=== PATIENT | female | born 1985 ===

== ENCOUNTER 2020-04-20 14:12 | Emergency (ER) | payer MEDICAID, SELFPAY | END 2020-04-20 17:57 | disposition admitted as inpatient to this hospital (09) | LOC: ER 04-23 00:37 | PROVIDERS: Emergency Provider Emergency Medicine; PCP Nurse Practitioner Family | DX: R45.850 Homicidal ideations (principal) | CPT/HCPCS: 12345; 36415; 80053; 80156; 80164; 80178; 80185; 80307; 84443; 85025; 93005; 96372; 99284; 99285; J1200; J1630; J2060 ==

== ENCOUNTER 2020-04-20 14:12 | Inpatient (IN) | payer MEDICAID, SELFPAY ==
--- NOTE | 2020-04-20 14:17 | ECG_ITS ---
[facility] ED Test Date: 2020-04-20 Pat Name: Jessica Wills Department: Room: 122 Gender: Female Crack Off Person: : 1985 Requested By: Francoise Loo Order Number: [id number] Jase MD: Bria Radford M.D. Measurements Intervals [place] Rate: 54 P: 38 IN: 142 QRS: 42 QRSD: 92 T: 42 QT: 471 QTc: 449 Interpretive Statements SINUS BRADYCARDIA NONSPECIFIC T-WAVE ABNORMALITY No previous ECG available for comparison Electronically Signed On 04-20-2020 18:23:49 CDT by Bria Radford M.D. [id number]
[2020-04-20 14:19] VITALS: BP 150/105; PULSE 97; RESP 17; TEMP 36.4; O2SAT 98; BMI 23.3
[2020-04-20] MEDS: LORazepam 2 mg/mL INJ 1 mL IM (14:40)
[2020-04-20] MEDS: haloperidol inj 5 mg/mL INJ 1 mL IM (14:40)
[2020-04-20] MEDS: diphenhydrAMINE 50 mg/mL SDV 1mL IM (14:40)
--- NOTE | 2020-04-20 14:40 | PC.NURSE ---
During assessment of patient this RN and JORGE LUIS Mckeon attempted to change the patient out. Patient refused to change out. After getting the patient to start changing she refused to remove her underwear and JORGE LUIS Mckeon saw the patient shove something in her underwear. Patient refused to take her underwear off. Staff then placed the patient in a manual hold. service delivery supervisor and security at bedside when manual hold performed. IM medications given to patient at this time. Patients bottoms then removed at this time. 2 lighters and a small bag of marijuana. DUKE Olvera placed the small bag of marijuana in a biohazard bag and given to the [facility] deputy. Patient placed in paper scrubs and resting on bed.
--- NOTE | 2020-04-20 14:45 | W.ED.PSYCH ---
HPI - Psych General: Chief Complaint: Psychiatric Symptoms Stated Complaint: 96 HOUR HOLD Time Seen by Provider: 04/20/20 14:17 Source: patient and police Mode of arrival: ambulatory Limitations: other (Patient is non-cooperative) History of Present Illness: HPI Narrative: Jessica is a 34-year-old female who is brought in for a 96-hour hold signed by the virtualization engineer. It appears the patient may have be hallucinating and have suicidal and homicidal ideation. Please see the affidavits for specifics. Patient is very noncompliant and withdrawn. She understands she is here for medical clearance and she will be admitted to the MPU. Review of Systems General: Reports: Other (Patient is non-cooperative) [facility] ED PFSH: Social History Smoking and tobacco status: never smoked Physical Exam Const: COMMON NORMALS: no acute distress, no limitations, healthy appearing and well nourished GENERAL APPEARANCE: cooperative and well developed HENMT: COMMON NORMALS: normocephalic, atraumatic, external ears normal, EAC's normal and Normal external nose present HEAD & SCALP: normal to inspection, normocephalic and atraumatic FACE & SINUS: normal facial exam and face symmetric NOSE: Normal external nose present and Normal nares present EXTERNAL EAR: Yes external ears normal EXTERNAL AUDITORY CANAL: EAC's normal MOUTH: Normal oral and palatal mucosa present, lip normal and tongue normal Eye: COMMON NORMALS: Equal, round and reactive pupils present and conjunctivae normal GENERAL EYE: appearance normal, both eyes and all related structures ALIGNMENT: Yes alignment normal PERIORBITAL: periorbital findings normal EYELID: eyelids normal CONJUNCTIVA: Yes conjunctivae normal SCLERA: sclerae normal PUPIL: Yes Equal, round and reactive pupils present Neck/C-Spine: COMMON NORMALS: full ROM, no lymphadenopathy, supple, no meningeal signs and no JVD GENERAL: Yes normal visual inspection and Yes trachea midline Chest: COMMONS NORMALS: normal inspection of the chest and normal palpation of entire chest wall Resp: COMMON NORMALS: normal respiratory effort, No retractions and No use of accessory muscles EFFORT & INSPECTION: Yes able to speak in complete sentences and Yes symmetric chest movement AUSCULTATION: no crackles, no rales, no rhonchi and no wheezes Cardio: COMMON NORMALS: no JVD, regular rate, regular rhythm, S1 normal heart sound present and S2 normal heart sound present RATE: regular rate RHYTHM: regular rhythm HEART SOUNDS: S1 normal heart sound present, S2 normal heart sound present, no click, no gallops, no murmurs, no rubs and abnormal split S2 GI: COMMON NORMALS: Soft to palpation and No hepatosplenomegaly present PALPATION: Yes Soft to palpation, No Tenderness to palpation present (GI), No Guarding due to palpation present (GI), No Rigid due to palpation, Yes No hepatosplenomegaly present, No Hernia present, No Palpable mass present and No Pulsatile mass present : COMMON NORMALS: Yes no CVA tenderness BLADDER/KIDNEY EXAM: Yes no CVA tenderness EXTERNAL FEMALE EXAM: No Hernia present Back/Pelvis: COMMON NORMALS: no CVA tenderness, thoracic and lumbar spine normal to inspection, no thoracic nor lumbar tenderness and thoraco-lumbar ROM normal Extremity: COMMON NORMALS: normal to inspection, full ROM, capillary refill normal, no joint enlargement, no clubbing, cyanosis or edema and no calf tenderness Neuro: COMMON NORMALS: CN's II-XII intact bilaterally, moves all extremities, no focal motor deficits and no sensory deficits noted MENINGEAL SIGNS: Yes no meningeal signs SPEECH: speech normal Psych: ATTITUDE: Yes uncooperative ACTIVITY/MOTOR BEHAVIOR: Yes Avoids eye contact (attititude/behavior) SPEECH: Yes minimal MOOD & AFFECT: Yes apathetic Skin: COMMON NORMALS: no rashes or lesions noted, turgor normal, no jaundice, no petechiae and no mottling GENERAL SKIN EXAM: no rashes or lesions noted and turgor normal MDM - Psych MDM Narrative: Medical decision making narrative: The case was reviewed with Dr. Oswald and he understands the patient is under 96-hour hold. He agrees to admit the patient for further evaluation and care. Lab Data: Attestation: I reviewed the patient's lab results. Labs: Lab Results 04/20/20 04/20/20 04/20/20 Range/Units 15:10 15:10 15:10 WBC 10.5 H (4.0-10.0) 10^3/ uL RBC 4.69 (4.1-5.3) 10^6/u L Hgb 12.9 (11.5-15.3) g/dL Hct 40.4 (37.0-47.0) % MCV 86.1 (81-99) fL MCH 27.5 L (28.0-34.0) pg MCHC 31.9 (30.0-36.0) g/dL RDW 13.4 (12.1-15.1) % Plt Count 267 (130-400) 10^3/c mm MPV 11.9 H (7.4-10.4) fL Neut % (Auto) 66.7 % Lymph % (Auto) 22.5 % [place] % (Auto) 9.0 % Eos % (Auto) 1.0 % Baso % (Auto) 0.4 % Neut # (Auto) 7.0 (1.8-7.7) 10^3/u L Lymph # (Auto) 2.4 (0.8-4.8) 10^3/u L [place] # (Auto) 0.9 (0.2-0.9) 10^3/u L Eos # (Auto) 0.1 (0.0-0.8) 10^3/u L Baso # (Auto) 0.0 (0.0-0.1) 10^3/u L Nucleated RBC % (a uto) 0 % Nucleated RBCs # 0.0 /100WBC Sodium 143 (136-145) mmol/L Potassium 3.2 L (3.5-5.1) mmol/L Chloride 105 (98-107) mmol/L Carbon Dioxide 26 (22-29) mmol/L Anion Gap 15.2 (5-19) BUN 12 (6-20) mg/dL Creatinine 0.7 (0.5-0.9) mg/dL GFR Calculation 96.4 (90-130) mL/min Glucose 103 (65-115) mg/dL Calculated Osmolal ity 292 (285-295) mOsm/k g Calcium 9.3 (8.5-10.5) mg/dL Total Bilirubin 0.2 (0.15-1.2) mg/dL AST 15 (0-32) U/L ALT 10 (0-33) U/L Alkaline Phosphata se 66 (35-105) IU/L Total Protein 6.5 L (6.6-8.7) g/dL Albumin 3.9 (3.5-5.2) g/dL Globulin 2.6 (1.3-4.6) g/dL TSH 0.96 (0.27-4.20) uIU/ mL Salicylates < 0.3 L (3-10) mg/dL Acetaminophen < 5.0 L (10-30) ug/mL Phenytoin 0.8 L (10-20) ug/mL Valproic Acid 2.8 L (50-100) ug/mL Carbamazepine 2.0 L (4.0-12.0) ug/mL [place] 0.1 L (0.6-1.2) mmol/L Ethyl Alcohol < 10 (0-10) mg/dL EKG Data^: EKG 1: Attestation: I personally reviewed and interpreted this EKG as follows: EKG interpretation date: 04/20/20 Interpretation: Normal sinus rhythm at 54 beats a minute, nonspecific ST-T wave changes. No blocks, normal intervals. Normal QTC. Discharge Plan Discharge Patient Disposition: Admitted As Inpatient Admit Provider: Sammy Oswald Clinical Impression: Homicidal ideations Condition: Stable Interventions: ED Discharge Assessment Last Done: 04/20/20 17:45 ED Charges Last Done: 04/20/20 17:45 Discharge Date/Time: 04/20/20 17:57 Coding Level of Care Code ED Industrial Green Systems Designer for Shana Junior
[2020-04-20 15:20] LABS: Basophils % 0.4 %; Eosinophils # 0.1 10^3/uL (0.0-0.8); Hematocrit 40.4 % (37.0-47.0); Hemoglobin 12.9 g/dL (11.5-15.3); Lymphocytes # 2.4 10^3/uL (0.8-4.8); Lymphocytes % 22.5 %; Mean Corpuscular HGB Conc 31.9 g/dL (30.0-36.0); Mean Corpuscular Hemoglobin 27.5 pg (28.0-34.0); Mean Corpuscular Volume 86.1 fL (81-99); Mean Platelet Volume 11.9 fL (7.4-10.4); Monocytes # 0.9 10^3/uL (0.2-0.9); Neutrophils % 66.7 %; Nucleated Red Blood Cells % 0 %; Platelet Count 267 10^3/cmm (130-400); Red Blood Count 4.69 10^6/uL (4.1-5.3); Red Cell Distribution Width 13.4 % (12.1-15.1); White Blood Count 10.5 10^3/uL (4.0-10.0)
[2020-04-20 15:32] LABS: Lithium 0.1 mmol/L (0.6-1.2)
[2020-04-20 15:40] LABS: Alanine Aminotransferase 10 U/L (0-33); Albumin Level 3.9 g/dL (3.5-5.2); Alkaline Phosphatase 66 IU/L (35-105); Anion Gap 15.2 (5-19); Aspartate Amino Transferase 15 U/L (0-32); Blood Urea Nitrogen 12 mg/dL (6-20); Calcium 9.3 mg/dL (8.5-10.5); Carbon Dioxide 26 mmol/L (22-29); Chloride 105 mmol/L (98-107); Globulin 2.6 g/dL (1.3-4.6); Glomerular Filtration Rate 96.4 mL/min (90-130); Glucose 103 mg/dL (65-115); Osmolality Calculated 292 mOsm/kg (285-295); Phenytoin Dilantin 0.8 ug/mL (10-20); Potassium 3.2 mmol/L (3.5-5.1); Sodium 143 mmol/L (136-145); Thyroid Stimulating Hormone 0.96 uIU/mL (0.27-4.20); Total Bilirubin 0.2 mg/dL (0.15-1.2); Total Protein 6.5 g/dL (6.6-8.7); Valproic Acid Level 2.8 ug/mL (50-100)
[2020-04-20 15:53] LABS: Acetaminophen < 5.0 ug/mL (10-30); Alcohol Level < 10 mg/dL (0-10); Salicylate < 0.3 mg/dL (3-10)
[2020-04-20 17:45] VITALS: BP 125/83; PULSE 64; RESP 16; O2SAT 98
[2020-04-20 18:34] VITALS: BP 108/69; PULSE 68; RESP 16; TEMP 36.7; O2SAT 98
[2020-04-20 18:58] VITALS: BP 107/75; PULSE 60; RESP 18; TEMP 37.1; O2SAT 98
[2020-04-20 21:39] VITALS: BP 107/75; PULSE 60; TEMP 37.1; O2SAT 98
--- NOTE | 2020-04-20 22:59 | PC.NURSE ---
Pt offered PRN sleeping med, pt refused.
[2020-04-21 06:00] VITALS: BP 101/60; PULSE 60; RESP 17; TEMP 36.6; O2SAT 97
--- NOTE | 2020-04-21 09:18 | PM.NHP ---
Providers/Chief Complaint Admitting Physician: Sammy Oswald MD Primary Care Provider: SEVERO Garvey Chief Complaint: 96 HOUR HOLD HPI NPU History of Present Illness Jessica Wills is a 34 year old female who presented to the emergency room with psychosis, extreme agitation requiring a code 10 to get her under control so that she could be administered 2. Reportedly contraband was found on her person including a real estate account executive and other paraphernalia. She was on a 96-hour hold and was noted to be hallucinating and speaking about suicidal and homicidal issues. She was admitted to the neuropsychiatric unit for definitive treatment of those issues. This morning she is less agitated, continues to appear to be attending to internal stimuli and laughing inappropriately and essentially denying any issues related to drugs or otherwise but at this point she is so confused that she is unable to have a coherent conversation. She is unable to provide any substantive history or facts regarding what led up to her situation, where she lives where she is from her anything of that nature to this movie writer. We discussed the fact that we would be working with her to try to help with her symptoms but she could only articulate questions about going home. She was unable to provide any historical data of any relevance. We will continue to try to gather more information as the days pass. Meds NPU Home Medications Medication Instructions Recorded Confirmed Last Taken Type No Known Home Medications 04/20/20 04/20/20 Unknown History Allergies Allergy/AdvReac Type Severity Reaction Status Date / Time No Known Allergies Allergy Unverified 04/20/20 14:53 PFS NPU PFSH: Social History Smoking and tobacco status: never smoked Mental Status Exam MSE Comments: This is a well-nourished well-developed white female with limited dress, grooming or eye contact. She has multiple scabs on her arms and face that look consistent with picking related likely to methamphetamine use, she has mild psychomotor agitation, uncooperative with exam in no acute distress. Speech was limited in decreased rate and volume. Mood not answered affect guarded. Thought process linear at best, thought content: Patient did not demonstrate outwardly directed or self directed aggression today, but does appear to be attending to internal stimuli and smiling inappropriately. Attention and concentration are impaired and memory is unreliable but none. She is alert and oriented to self Insight and judgment are impaired. Vitals/I&O/Wt Last Vital Signs Temp 97.9 F 04/21/20 06:00 Pulse 60 04/21/20 06:00 Resp 17 04/21/20 06:00 BP 101/60 04/21/20 06:00 Pulse Ox 97 04/21/20 06:00 Weight last 48 hrs Weight 63.503 kg Data NPU : 04/20/20 15:10 04/20/20 15:10 A&P Assessment and plan (1) Methamphetamine dependence: Status: Acute (2) Psychosis: Status: Acute (3) Homicidal ideations: Status: Acute Additional A&P Information This is a 34-year-old white female who presents fairly unknown to the neuropsychiatric unit with active psychosis positive methamphetamine drug screen and aggression in the emergency room currently calm her but still psychotic and not really engaging in assisting with information gathering. 1. Continue current medication. 2. We will continue to offer her Abilify or some other antipsychotic to assist in her likely methamphetamine induced psychosis. 3. Continue to 15-minute checks for safety. 4. We will work with social work to locate a sober living facility and encouraged her to discharge to a facility at the highest level of care to which she is willing to commit once she clears. Involuntary Hold Information 96 Hour Hold: 96 Hour Involuntary Admission: Yes 96 Hour Hold Ending Date: 04/27/20 Attestations NPU Medical Necessity Statement*: Inpatient hospitalization is medically necessary and the clinically appropriate intervention at this time. We will monitor her medication and offer medication and make changes as indicated. She will be in the hospital for over 2 midnights. Likely length of stay 4 to 6 days. Coding Level of Care Code Acute Scrap Metal Collector for Shana Junior Diagnoses Methamphetamine dependence F15.20 Psychosis F29 Homicidal ideations R45.850
[2020-04-21 14:00] VITALS: BP 106/72; PULSE 85; RESP 18; TEMP 37.1; O2SAT 96
[2020-04-21 14:36] LABS: Amphetamines Screen Urine Positive (Negative); Barbiturates Screen Urine Negative (Negative); Benzodiazepines Screen Urine Positive (Negative); Cocaine Screen Urine Negative (Negative); Opiate Screen Urine Negative (Negative); PCP Screen Urine Negative (Negative); THC Screen Urine Positive (Negative)
[2020-04-21 20:11] VITALS: BP 106/73; PULSE 89; RESP 14; TEMP 37.3; O2SAT 97
--- NOTE | 2020-04-22 | PC.NURSE ---
Pt was offered PRN Trazodone and vistaril to aide with sleep and anxiety but refused meds.
[2020-04-22 06:00] VITALS: BP 110/61; PULSE 76; RESP 18; TEMP 36.9; O2SAT 98
[2020-04-22 14:00] VITALS: BP 103/67; PULSE 81; RESP 18; TEMP 37.2; O2SAT 99
--- NOTE | 2020-04-22 15:01 | P.PN_ITS ---
Subjective NPU Subjective: Interval history: Jessica presents today a little more talkative but no less resistant. She presented asking about going home and I explained to her that she was on a 96-hour hold. I asked what were the circumstances that brought her to the hospital yesterday and she gave no real answer. I asked whether she had been recently struggling more with drugs that she had in the past that she denies using drugs. I asked then if she could explain why her drug screen was positive for multiple substances and she responded well I guess that means I used drugs and laughed inappropriately. She did not express an openness to initiate Abilify which is what I would like to do and we continued to discuss the process of the 96-hour hold and how that would work. Mental Status Exam MSE Comments: This is a well-nourished well-developed white female with limited dress, grooming or eye contact. She has multiple scabs on her arms and face that look consistent with picking related likely to methamphetamine use, she has mild psychomotor agitation, uncooperative with exam in no acute distress. Speech was more functionally verbal today but still decreased rate and volume. Mood reported as OK affect guarded. Thought process linear at best, thought content: Patient did not demonstrate outwardly directed or self directed aggression today, but does appear to be attending to internal stimuli and smiling inappropriately. Attention and concentration are impaired and memory is unreliable but none. She is alert and oriented to self. Insight and judgment are impaired. Vitals/I&O/Wt Last Vital Signs Temp 98.5 F 04/22/20 06:00 Pulse 76 04/22/20 06:00 Resp 18 04/22/20 06:00 BP 110/61 04/22/20 06:00 Pulse Ox 98 04/22/20 06:00 04/22/20 04/23/20 04/23/20 22:59 06:59 14:59 Intake Total 120 / 120 Balance 120 / 120 Data NPU : 04/20/20 15:10 04/20/20 15:10 A&P Additional A&P Information (1) Methamphetamine dependence: (2) Psychosis: (3) Homicidal ideations: This is a 34-year-old white female who presents fairly unknown to the neuropsychiatric unit with active psychosis positive methamphetamine drug screen and aggression in the emergency room currently calm her but still psychotic and not really engaging in assisting with information gathering. 1. Continue current medication. 2. We will continue to offer her Abilify or some other antipsychotic to assist in her likely methamphetamine induced psychosis. 3. Continue to 15-minute checks for safety. 4. We will work with social work to locate a sober living facility and encouraged her to discharge to a facility at the highest level of care to which she is willing to commit once she clears. Involuntary Hold Information 96 Hour Hold: 96 Hour Involuntary Admission: Yes 96 Hour Hold Ending Date: 04/27/20 Attestations NPU Medical Necessity Statement*: Inpatient hospitalization is medically necessary and the clinically appropriate intervention at this time. We will monitor her medication and offer medication and make changes as indicated. Likely length of stay 3-5 days. Coding Level of Care Code Acute Head Of Sales And Marketing for Shana Junior
[2020-04-22 22:00] VITALS: BP 131/78; PULSE 92; RESP 20; TEMP 36.7; O2SAT 97
[2020-04-23 06:00] VITALS: BP 104/76; PULSE 70; RESP 14; TEMP 37; O2SAT 99
[2020-04-23 13:08] VITALS: BP 101/66; PULSE 64; RESP 18; TEMP 37.3; O2SAT 97
--- NOTE | 2020-04-23 16:05 | P.PN_ITS ---
Subjective NPU Subjective: Interval history: Jessica presented today much more coherent and able to communicate, still appears to be limited cognitively either secondary to use or baseline. She continues to endorse a desire to be discharged but today is the first day that she seemed to have enough clarity to be making the decision, even if there are concerns about her lack of interest in dealing with her addiction. We discussed the fact that her 96-hour hold is up tomorrow and if she continues to show improvement in her clarity and progress, we will discharge tomorrow. She continued to deny any methamphetamine use at this point, only endorsing cannabis use. Mental Status Exam MSE Comments: This is a well-nourished, well-developed, white female, with adequate dress, grooming, and eye contact. There are significant lesions all over her body from likely cooking. No abnormal movements. Cooperative with exam in no acute distress. Speech was more normal rate and volume. Mood described as pretty good; affect euthymic. Thought process, organized. Thought content: patient denied any suicidal or homicidal ideation, there were no delusions reported or noted, patient denied any auditory or visual hallucinations. Attention, concentration, and memory appeared intact but were not formally teste d. Alert and oriented times three. Insight and judgment are limited but improving and intellectual ability questionable. Vitals/I&O/Wt Last Vital Signs Temp 98.4 F 04/23/20 22:00 Pulse 89 04/23/20 22:00 Resp 18 04/23/20 22:00 BP 129/85 04/23/20 22:00 Pulse Ox 98 04/23/20 22:00 04/23/20 04/23/20 04/24/20 14:59 22:59 06:59 Intake Total 280 / 280 Balance 280 / 280 Data NPU : 04/20/20 15:10 04/20/20 15:10 A&P Additional A&P Information (1) Methamphetamine dependence: (2) Psychosis: (3) Homicidal ideations: This is a 34-year-old white female who presents fairly unknown to the neuropsychiatric unit with active psychosis positive methamphetamine drug screen and aggression in the emergency room currently calm and having resolution of her altered mental status without real interest in engaging in treatment. 1. Continue current medication. 2. Patient refusing medication or treatment and desiring for discharge. 3. Continue to 15-minute checks for safety. 4. We will work with social work to locate a sober living facility and encouraged her to discharge to a facility at the highest level of care to which she is willing to commit, but at this point patient does not appear interested in any treatment whatsoever. Involuntary Hold Information 96 Hour Hold: 96 Hour Involuntary Admission: Yes 96 Hour Hold Ending Date: 04/27/20 Attestations NPU Medical Necessity Statement*: Inpatient hospitalization is medically necessary and the clinically appropriate intervention at this time. We will monitor her medication and offer medication and make changes as indicated. Likely length of stay 1-3 days. Patient evaluated and no credible lethality exists and so we will likely discharge tomorrow in accordance with the 96-hour hold. Coding Level of Care Code Acute Neurology Technologist for Shana Junior
[2020-04-23 22:00] VITALS: BP 129/85; PULSE 89; RESP 18; TEMP 36.9; O2SAT 98
[2020-04-24 06:00] VITALS: BP 105/68; PULSE 64; RESP 19; TEMP 37; O2SAT 98
--- NOTE | 2020-04-24 08:37 | PM.NDC ---
Diagnoses at Discharge Discharge Diagnosis (1) Methamphetamine dependence: Status: Acute (2) Psychosis: Status: Resolved (3) Homicidal ideations: Status: Resolved Reason for Visit Reason for Visit: 96 HOUR HOLD Brief History: Jessica Wills is a 34 year old female who presented to the emergency room with psychosis, extreme agitation requiring a code 10 to get her under control so that she could be administered 2. Reportedly contraband was found on her person including a quarry supervisor open pit and other paraphernalia. She was on a 96-hour hold and was noted to be hallucinating and speaking about suicidal and homicidal issues. She was admitted to the neuropsychiatric unit for definitive treatment of those issues. This morning she is less agitated, continues to appear to be attending to internal stimuli and laughing inappropriately and essentially denying any issues related to drugs or otherwise but at this point she is so confused that she is unable to have a coherent conversation. She is unable to provide any substantive history or facts regarding what led up to her situation, where she lives where she is from her anything of that nature to this commercial insurance underwriter. We discussed the fact that we would be working with her to try to help with her symptoms but she could only articulate questions about going home. She was unable to provide any historical data of any relevance. We will continue to try to gather more information as the days pass. Hospital Course Hospital Course Jessica presented to the emergency room with agitation, active psychosis and inability to give informed consent. She was admitted to the neuropsychiatric unit for definitive treatment of those issues on a 96 hour hold. She was initially unable to give meaningful information upon interview. She very slowly acclimated to the individual, group and milieu therapies provided. Ultimately her likely drug-induced psychosis began to resolve and she continued to be resistant to any medication and only wanted to be discharged. She showed significant improvement despite being on the unit and not having access to any mind altering substances. During the hospitalization, the patient had routine laboratory studies which were within normal limits except for a few outliers. Additionally there was a general medical evaluation, which was also within normal limits revealed no processes. Discharge Summary At the time of discharge the patient was absent lethality, there was no psychosis reported or noted. Mood and anxiety were well managed. The patient endorsed the plan to avoid all drugs of abuse and follow-up with the recommendations of the treatment team. The patient was evaluated and deemed to be absent credible lethality, and had achieved the maximum benefit from an inpatient hospitalization, so she was discharged. Involuntary Hold Information 96 Hour Hold: 96 Hour Involuntary Admission: Yes 96 Hour Hold Ending Date: 04/27/20 Mental Status Exam MSE Comments: This is a well-nourished, well-developed, white female, with adequate dress, grooming, and eye contact. There are significant lesions all over her body from likely picking. No abnormal movements. Cooperative with exam in no acute distress. Speech was more normal rate and volume. Mood described as pretty good; affect euthymic. Thought process, organized. Thought content: patient denied any suicidal or homicidal ideation, there were no delusions reported or noted, patient denied any auditory or visual hallucinations. Attention, concentration, and memory appeared intact but were not formally tested. She was alert and oriented times three. Insight and judgment are limited but improving and intellectual ability questionable. Impulse control is limited. Discharge Data Vitals: Last Vital Signs Temp 98.6 F 04/24/20 06:00 Pulse 64 04/24/20 06:00 Resp 19 H 04/24/20 06:00 BP 105/68 04/24/20 06:00 Pulse Ox 98 04/24/20 06:00 Discharge Plan Discharge Patient Disposition: Home, Self-Care Condition: Stable Prescriptions: Continued No Known Home Medications RF: 0 Discharge Orders: Discharge Order (Routine); Ordered 04/24/20 Ordered By: Sammy Oswald Referrals: [facility] [Outside] - 4-7 days (walk-in hours Monday through Monday 7:30 a.m.-2:30 p.m. go some time within the walk-in hours and request initial intake. ) [facility] [Outside] - 1-3 days ([facility] or [facility] offers substance abuse treatment for drugs and alcohol issues. ) Discharge Diet: Regular Discharge Activity: Resume usual activity Patient Instructions: Marijuana Abuse, Methamphetamine Abuse (DC) Discharge Date/Time: 04/24/20 11:12 Discharge Attestations NPU Time Spent in Discharge Care*: less than 30 min Specific Discharge Activities: Specific discharge activities: educating patient, discussing with registered nurse hh case manager/social workers/dc planners, documenting/other paperwork and evaluating patient/reviewing data Coding Level of Care Code Acute Net Mvc Developer for Shana Fwd Diagnoses Methamphetamine dependence F15.20 Psychosis F29 Homicidal ideations R45.850
[2020-04-24 08:45] VITALS: BP 105/68; PULSE 64; RESP 19; TEMP 37; O2SAT 98
== END 2020-04-24 11:12 | disposition home or self-care (01) | DRG 885 ==
LOC: ER 14:53 → NP 16:20
PROVIDERS: Emergency Medicine; Admitting Provider Psychiatry & Neurology Psychiatry; PCP Nurse Practitioner Family; Visit Provider Psychiatry & Neurology Psychiatry
DX: F23 Brief psychotic disorder (principal); F15.20 Other stimulant dependence, uncomplicated; R45.850 Homicidal ideations
CPT/HCPCS: 12345; 36415; 80053; 80156; 80164; 80178; 80185; 80306; 80307; 84443; 85025; 93005; 96372; 99284; J1200; J1630; J2060